=== PATIENT | female | born 1990 | race Caucasian/White ===

== ENCOUNTER 2017-03-02 03:00 | Emergency (ER) | payer BC ==
[~2017-03-02] VITALS: Ht 157.5 cm; Wt 56.3 kg
[2017-03-02 03:05] VITALS: Ht 157.5 cm; Wt 56.3 kg
[2017-03-02] MEDS ORDERED: traMADol 50 MG TAB PO ONE (03:30)
--- NOTE | 2017-03-02 03:30 | ERD ---
ER Documentation Chief Complaint Date/Time DATE: 03/02/17 TIME: 03:27 Chief Complaint c/o gen joint pains more on legs and jaw x 3 mo off and on. dx arthritis HPI 26-year-old female presents to emergency department for chronic joint pains, patient was diagnosed recently to have arthritis, is supposed to see specialist at the end of the month for further evaluation. Patient was supposed to be naproxen but stopped taking it for pain. Patient does not take her medication for pain at this time. Patient discussed the pain as sharp pain, 6/10 scale, is worse upon movement of symptoms. Patient denies any redness as well. Patient denies any fever or chills. Patient denies any numbness or tingling. Patient denies any other symptoms. Patient denies any trauma and affected joints. ROS All systems reviewed and are negative except as per history of present illness. Medications Home Meds Reported Medications [none] Unknown Strength No Conflict Check 03/02/17 Allergies Allergies: Coded Allergies: No Known Drug Allergies (Verified Allergy, Unknown, 03/02/17) PMhx/Soc History of Surgery: Yes (HERNIA SX A CHILD) Anesthesia Reaction: No Hx Neurological Disorder: No Hx Respiratory Disorders: No Hx Cardiac Disorders: No Hx Psychiatric Problems: No Hx Miscellaneous Medical Probl: Yes (10.19.16 DX OF ARTHRITIS) Hx Alcohol Use: No Hx Substance Use: No Hx Tobacco Use: No Smoking Status: Never smoker FmHx Family History: No coronary disease, No diabetes, No other Physical Exam Vitals Vital Signs Date Time Temp Pulse Resp B/P Pulse Ox O2 Delivery O2 Flow Rate FiO2 03/02/17 03:05 98.0 80 18 118/58 98 Physical Exam GENERAL: The patient is well developed and appropriate for usual state of health, in no apparent distress. CHEST: Clear to auscultation bilaterally. There are no rales, wheezes or rhonchi. HEART: Regular rate and rhythm. No murmurs, clicks, rubs or gallops. No S3 or S4. ABDOMEN: Soft, nontender and nondistended. Good bowel sounds. No rebound or guarding. No gross peritonitis. No gross organomegaly or masses. No Og sign or McBurney point tenderness. BACK: No midline or flank tenderness. EXTREMITIES: Equal pulses bilaterally. There is no peripheral clubbing, cyanosis or edema. No focal swelling or erythema. Full range of motion. Grossly neurovascularly intact. NEURO: Alert and oriented. Cranial nerves 2-12 intact. Motor strength in all 4 extremities with 5/5 strength. Sensation grossly intact. Normal speech and gait. SKIN: There is no apparent rash or petechia. The skin is warm and dry. HEMATOLOGIC AND LYMPHATIC: There is no evidence of excessive bruising or lymphedema. No gross cervical, axillary, or inguinal lymphadenopathy. Results 24 hrs Current Medications Medications (Trade) Dose Ordered Sig/Luciana Route PRN Reason Start Time Stop Time Status Last Admin Dose Admin Tramadol HCl (Ultram) 50 mg ONCE ONCE PO 03/02/17 03:30 03/02/17 03:31 03/02/17 03:26 Patient was given medication for pain here in emergency department, after treatment, patient verbalized feeling much better. Patient's pain is improved. Procedures/MDM Medical Decision Making: Patient's pain is nonspecific at this time, possibly from her arthritis. There is no suspicion for neurovascular compromise. Patient has intact sensation and circulation of the affected extremity. There is low suspicion for septic arthritis. Patient does not have any fever. Radiology exam is not indicated at this time. Disposition: Home. Patient is given prescription for Tylenol for severe pain. Patient was advised to elevate the affected area and apply ice on affected area. Patient was advised that if symptoms are worse, numbness, tingling, high fever, unable to move joint, worsening symptoms, to return to emergency department immediately. Otherwise, patient is advised to follow up with the primary care doctor in 5-7 days for reevaluation of symptoms. See specialist for further evaluation of her arthritis. Return to emergency department for any worsening s/s Departure Diagnosis: Primary Impression: Joint pain Joint pain location: unspecified Qualified Code: M25.50 - Arthralgia, unspecified joint Condition: Stable Patient Instructions: What Is Arthritis? Additional Instructions: Patient is given prescription for Tylenol for severe pain. Patient was advised to elevate the affected area and apply ice on affected area. Patient was advised that if symptoms are worse, numbness, tingling, high fever, unable to move joint, worsening symptoms, to return to emergency department immediately. Otherwise, patient is advised to follow up with the primary care doctor in 5-7 days for reevaluation of symptoms. See specialist for further evaluation of her arthritis. Return to emergency department for any worsening s/s MAGUI HERNANDEZ NP March 02, 2017 03:30
[2017-03-02] MEDS ORDERED: TRAM50TA2 PO (03:32)
== END 2017-03-02 04:02 | disposition home or self-care (01) ==
LOC: FTE 03:00
DX: M25.50 Pain in unspecified joint (principal)
CPT/HCPCS: Z7502; Z7610; 99283

== ENCOUNTER 2018-02-23 00:58 | Emergency (ER) | END 2018-02-23 04:28 | disposition home or self-care (01) ==